=== PATIENT | male | born 1985 | race Two or more races ===

== ENCOUNTER 2018-09-25 17:55 | Emergency (ER) | payer OTHER, MEDICAID ==
[~2018-09-25] VITALS: Ht 172.7 cm; Wt 72.6 kg
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
--- NOTE | 2018-09-25 18:24 | NUR ---
PT IS WHEELED TO CT SCAN VIA [facility].
[2018-09-25] MEDS ORDERED: ACETAMINOPHEN ES 500 MG TABLET PO ONE (18:30)
[2018-09-25] MEDS ORDERED: ACETAMINOPHEN ES 500 MG TABLET ONE (18:40)
--- NOTE | 2018-09-25 19:21 | NUR ---
REPORT GIVEN TO MICHAEL WALL FOR JAN.
--- NOTE | 2018-09-25 19:47 | NUR ---
Patient discharged to [facility] in stable condition. Written and verbal after care instructions given. [employer] verbalizes understanding of instruction. PT AMBULATED OUT IN HANDCUFFS WITH A STEADY GAIT.
[2018-09-25 19:49] VITALS: BP 138/53
== END 2018-09-25 19:46 ==
LOC: ER 17:58
DX: Z02.89 Encounter for other administrative examinations (principal); F31.9 Bipolar disorder, unspecified; Y08.89XA Assault by other specified means, initial encounter; Y93.89 Activity, other specified; Y92.89 Other specified places as the place of occurrence of the external cause; Y99.8 Other external cause status
CPT/HCPCS: 70450; 99284; A4606